=== PATIENT | female | born 1985 | race Two or more races ===

== ENCOUNTER 2017-05-11 07:34 | Emergency (ER) | payer SELFPAY ==
[2017-05-11 07:48] LABS: URINE HCG POC HCG POSITIVE (Negative)
[2017-05-11 08:13] LABS: BACTERIA,URINE FEW /HPF (0-FEW); BILIRUBIN,URINE NEGATIVE (NEG); CLARITY,URINE CLOUDY; COLOR,URINE YELLOW; GLUCOSE,URINE NEGATIVE (NEG); NITRITE,URINE NEGATIVE (NEG); PROTEIN,URINE NEGATIVE (NEG-TRACE); RBC,URINE 0 /HPF (0-2); SQUAMOUS EPITHELIAL CELL,UR FEW /LPF; UROBILINOGEN,URINE 0.2 mg/dL (0.2 mg/dL); WBC,URINE 0 /HPF (0-4)
[2017-05-11] MEDS: IV NORMAL SALINE 1000ML BAG 1,000 ML IV (08:21)
[2017-05-11 08:29] LABS: ADD MAN DIFF? NO
[2017-05-11 08:32] LABS: BASO % 1 % (0-3); EOS # 0.1 x10^3/uL (0.0-0.7); EOS % 1 % (0-3); HEMATOCRIT 37.9 % (36.0-47.0); HEMOGLOBIN 12.8 g/dL (12.0-15.5); LYMPH # 2.1 x10^3/uL (1.0-4.8); LYMPH % 27 % (24-48); MEAN CORPUSCULAR HEMOGLOBIN 29 pg (25-35); MEAN CORPUSCULAR HGB CONC 34 g/dL (31-37); MEAN CORPUSCULAR VOLUME 86 fL (79-100); MONO # 0.6 x10^3/uL (0.0-1.1); MONO % 7 % (0-9); NEUT % 64 % (31-73); PLATELET COUNT 238 x10^3/uL (140-400); RED BLOOD COUNT 4.42 x10^6/uL (3.50-5.40); RED CELL DISTRIBUTION WIDTH 12.4 % (11.5-14.5); WHITE BLOOD COUNT 7.9 x10^3/uL (4.0-11.0)
[2017-05-11 08:44] LABS: ANION GAP 7 (6-14); BLOOD UREA NITROGEN 10 mg/dL (7-20); BUN/CREATININE RATIO 17 (6-20); CALCIUM 8.8 mg/dL (8.5-10.1); CARBON DIOXIDE 26 mmol/L (21-32); CHLORIDE 104 mmol/L (98-107); CREATININE 0.6 mg/dL (0.6-1.0); GFR 117.4; GLUCOSE 101 mg/dL (70-99); SODIUM 137 mmol/L (136-145)
[2017-05-11 08:50] LABS: ALBUMIN 3.3 g/dL (3.4-5.0); ALBUMIN/GLOBULIN RATIO 0.8 (1.0-1.7); ALK PHOS 62 U/L (46-116); ALT (SGPT) 14 U/L (14-59); AST (SGOT) 11 U/L (15-37); MAGNESIUM 1.8 mg/dL (1.8-2.4); TOTAL BILIRUBIN 0.3 mg/dL (0.2-1.0); TOTAL PROTEIN 7.3 g/dL (6.4-8.2)
[2017-05-12 14:27] LABS: CHLAMYDIA PROBE Negative (Negative); GC PROBE Negative (Negative)
== END 2017-05-11 10:13 | disposition home or self-care (01) ==
LOC: ER 07:34
DX: O20.0 Threatened abortion (principal); O98.811 Other maternal infectious and parasitic diseases complicating pregnancy, first trimester; B37.3 Candidiasis of vulva and vagina; Z3A.08 8 weeks gestation of pregnancy
CPT/HCPCS: 36415; 76801; 80053; 81001; 81025; 83735; 84702; 85025; 86850; 86900; 86901; 87491; 87591; 96360; 99285-25; J7030; Q0111

== ENCOUNTER 2019-10-04 18:48 | Emergency (ER) | payer SELFPAY ==
[~2019-10-04] VITALS: Ht 165.1 cm; Wt 69.0 kg
--- NOTE | 2019-10-04 19:46 | PHYS DOC ---
Past Medical History Past Medical History: No Pertinent History Additional Past Medical Histor: COVID-19 POSITIVE 09/26/19 Past Surgical History: No Surgical History Smoking Status: Never Smoker Alcohol Use: None Drug Use: None General Adult EDM: Chief Complaint: SHORTNESS OF BREATH HPI: HPI: Patient is a 34 year old female presents with a one-day history of shortness of breath. Patient endorses pleuritic upper chest pain that is nonradiating. Pain is worse across. Pain is moderate in severity. Symptoms are worse with backrest. Patient has had a nonproductive cough for the last 9 days which is improving. Patient was tested positive for [place] virus 9 days ago. Patient denies any fever. Review of Systems: Review of Systems: Constitutional: Denies fever or chills. [] Eyes: Denies change in visual acuity. [] HENT: Complains of nasal congestion Respiratory: Planes of dry cough and shortness of breath Cardiovascular: Complains of pleuritic chest pain but no edema GI: Denies abdominal pain, but had some mild nausea and diarrhea yesterday : Denies dysuria. [] Musculoskeletal: Denies back pain or joint pain. [] Integument: Denies rash. [] Neurologic: Denies headache, focal weakness or sensory changes. [] Endocrine: Denies polyuria or polydipsia. [] Lymphatic: Denies swollen glands. [] Psychiatric: Denies depression or anxiety. [] Heart Score: Risk Factors: Risk Factors: DM, Current or recent (<one month) smoker, HTN, HLP, family history of CAD, obesity. Risk Scores: Score 0 - 3: 2.5% MACE over next 6 weeks - Discharge Home Score 4 - 6: 20.3% MACE over next 6 weeks - Admit for Clinical Observation Score 7 - 10: 72.7% MACE over next 6 weeks - Early Invasive Strategies Allergies: Allergies: Allergies Coded Allergies Type Severity Reaction Last Updated Verified No Known Drug Allergies 05/11/17 No Physical Exam: PE: Constitutional: Well developed, well nourished, no acute distress, non-toxic appearance. [] HENT: Normocephalic, atraumatic, bilateral external ears normal, no trismus nose normal. [] Eyes: PERRLA, EOMI, conjunctiva normal, no discharge. [] Neck: Normal range of motion, no tenderness, supple, no stridor. [] Cardiovascular:Heart rate regular rhythm, peripheral pulses intact, cap refill brisk Lungs & Thorax: Bilateral breath sounds clear, no respiratory distress Abdomen: , soft, no tenderness, no masses, no pulsatile masses. [] Skin: Warm, dry, no erythema, no rash. [] Back: No tenderness, no CVA tenderness. [] Extremities: No tenderness, no cyanosis, no clubbing, ROM intact, no edema. [] Neurologic: Alert and oriented X 3, normal motor function, normal sensory function, no focal deficits noted. [] Psychologic: Affect normal, judgement normal, mood normal. [] Current Patient Data: Vital Signs: Vital Signs Date Time Temp Pulse Resp B/P (MAP) Pulse Ox O2 Delivery O2 Flow Rate FiO2 10/04/19 19:32 98.7 72 18 123/83 (96) 100 Room Air 98.7 EKG: EKG: [] EKG interpreted by la sinus bradycardia at a rate of 58 normal axis normal intervals normal ST segments Radiology/Procedures: Radiology/Procedures: [][address] [id number] IMAGING REPORT Signed PATIENT: ROBERTO SCHMIDCOUNT: [id number] : 1985 LOCATION: ER AGE: 34 SEX: F EXAM STATUS: REG ER ORD. PHYSICIAN: KESHA KAUFFMAN MD REASON: soa, covid pos PROCEDURE: PORTABLE CHEST 1V PORTABLE CHEST 1V History: Shortness of air, COVID positive Comparison: None. Findings: Single view of the chest is submitted. No significant infiltrate is identified by radiograph. There is no pleural fluid or pneumothorax. Heart size is within normal limits given technique. Impression: 1. No infiltrate is identified by radiograph. Electronically signed by: Layo Hedrick MD (10/04/2019 8:21 PM) [facility] DICTATED and SIGNED BY: LAYO HEDRICK MD DATE: 10/04/192020 [address] [id number] IMAGING REPORT Signed PATIENT: ROBERTO SCHMIDCOUNT: [id number] : 1985 LOCATION: ER AGE: 34 SEX: F EXAM STATUS: REG ER ORD. PHYSICIAN: KESHA KAUFFMAN MD REASON: SOA, ELEVATED DIMER, COVID POSITIVE PROCEDURE: CT ANGIOGRAPHY CHEST Exam: CT of chest with contrast INDICATION: Short of air, elevated d-dimer. Covid positive TECHNIQUE: Sequential axial images through the chest obtained following the administration 100 mL of Omni 350 IV contrast. Sagittal and coronal reformatted images were reconstructed from the axial data and reviewed. Comparisons: Chest x-ray FINDINGS: Visualized portions of the thyroid are unremarkable. No enlarged mediastinal lymph nodes. Heart size is normal. No pericardial effusion. Thoracic aorta has a normal course and caliber. Pulmonary artery is not enlarged. No pulmonary embolus identified within the main, lobar or segmental pulmonary arteries. Airways are patent. There is patchy areas of groundglass opacity noted in the peripheral lower lobes bilaterally. No pneumothorax. No suspicious lung nodules are identified. No pleural effusion or thickening. Visualized upper abdomen is unremarkable. No suspicious osseous lesions or acute fractures. IMPRESSION: 1. No pulmonary embolus identified within the main, lobar or segmental pulmonary arteries. 2. Patchy areas of groundglass opacity particularly in the peripheral lower lobes consistent with history of Covid 19 Exposure: One or more of the following in the visualized dose reduction techniques were utilized for this examination: 1. Automated exposure control 2. Adjustment of the MA and/or KV according to patient size 3. Use of iterative of reconstructive technique Electronically signed by: Juan Carlos Persaud MD (10/04/2019 9:57 PM) [id number] DICTATED and SIGNED BY: JUAN CARLOS PERSAUD MD DATE: 10/04/192156 Course & Med Decision Making: Course & Med Decision Making Pertinent Labs and Imaging studies reviewed. (See chart for details) [] 34-year-old female recently diagnosed with COVID-19. Patient has chest pain pleuritic in nature and shortness of breath and elevated d-dimer therefore she had a CT angiogram which was negative for pulmonary embolism. Patient is hemody namically stable but has patchy infiltrates on CT no respiratory distress. Patient stable for discharge to outpatient follow-up. Dragon Disclaimer: Dragon Disclaimer: This electronic medical record was generated, in whole or in part, using a voice recognition dictation system. Departure Departure Impression: Primary Impression: COVID-19 Additional Impression: Dyspnea Disposition: 01 HOME, SELF-CARE Condition: STABLE Referrals: NO PCP (PCP) PCP 2-3 DAYS Patient Instructions: Shortness of Breath Additional Instructions: Definicin Se le realiz la prueba de deteccin del COVID-19 o se le diagnostic dicha enfermedad. Es luis infeccin ocasionada por un nuevo tipo de coronavirus. En la mayora de los casos, el COVID-19 provoca sntomas similares a los del resfriado. En algunas personas, puede ocasionar sntomas ms graves, zee problemas respiratorios. No existe un tratamiento para el virus COVID-19. El cuerpo elimina la infeccin con el tiempo. El cuidado personal ayuda a aliviar el malestar. Pasos que debe seguir 1. Cuidados personales Descanse cuando sea necesario. Los hbitos saludables pueden ayudarlo a sentirse mejor. Algunas medidas para lograr cambios incluyen lo siguiente: - Elija alimentos saludables, zee frutas y verduras. Linda abundante cantidad de agua shane todo el da. - Duerma sue por la noche. - Si fuma, intente no hacerlo. [place] ayudar a mejorar la respiracin. - Evite el alcohol. 2. Mantenga sanos a los dems El virus puede contagiarse a otras personas. Cada vez que estornuda o tose, se l iberan gotitas. Las gotitas pueden entrar en la boca, la nariz o los ojos de las personas que se encuentran cerca de usted y ocasionar la infeccin. Para reducir las probabilidades de contagiar el virus COVID-19 a otros, tenga en cuenta lo siguiente: - Qudese en casa el tiempo que el mdico se lo indique. Es posible que deba quedarse en casa hasta que la enfermedad desaparezca. Salga nicamente para recibir atencin mdica o en gume de urgencia. - Evite las reas pblicas, los eventos o el transporte pblico. No reanude las actividades laborales o escolares hasta que el mdico lo autorice. - Llame previamente si necesita asistir a un centro mdico. Avise que es posible que haya contrado COVID-19. [place] ayudar a que le indiquen adonde debe dirigirse. Rhonda pueden pedirle que use luis mscara facial cuando vaya al consultorio. Si llama a los servicios de asistencia mdica de urgencias, avseles que es posible que haya contrado COVID-19. Mientras est en casa: - Evite el contacto directo con otras personas. Mantngase a luis distancia aproximada de 2 metros. Si es posible, pasen la mayor parte del tiempo en ibarra separadas. - Use luis mscara facial si estar en contacto directo con otras personas, por ejemplo, si compartir luis habitacin o un vehculo. - Pida a alguien que limpie las superficies comunes de la casa. Limpie picaportes, mesadas y lavamanos con limpiadores domsticos todos los lopez. - Al toser o estornudar, cbrase con un pauelo de papel. Despus de usarlo, deschelo de inmediato. Si no tiene un pauelo de papel, tosa o estornude en el pliegue del codo. - Lvese las katy con frecuencia. Lvese las katy despus de estornudar o toser. Lvese con agua y jabn shane, al menos, 20 segundos. Si no dispone de agua y jabn, use un limpiador de katy a base de alcohol. - No cocine para otros. Evite compartir objetos personales, zee tenedores, cucharas o cepillos de dientes. - Mientras est enfermo, evite el contacto directo con las mascotas. No hay indicios de si el virus se transmite a las mascotas. Esta es luis medida de seguridad que debe tenerse en cuenta hasta que se sepa ms acerca de jaja virus. El aislamiento puede ser frustrante. La interaccin social puede ayudar. Mantngase en contacto con amigos y familiares por telfono u otros medios tecnolgicos. Puede interactuar con otras personas en el hogar, meryl mantenga luis distancia [place] de aproximadamente 2 metros. Seguimiento Las pruebas para confirmar la presencia del COVID-19 pueden demorar algunos lopez. Es posible que deba seguir los pasos mencionados anteriormente hasta que estn los resultados de las pruebas. Lo llamarn del consultorio mdico para saber si lu habido algn cambio en luna [place]. Tambin le avisarn cuando pueda volver a estar cerca de otras personas. Problemas a los que debe estar atento Comunquese con el mdico si no se recupera segn lo previsto o si tiene probl emas zee los siguientes: - Dificultad para respirar - Dolor de pecho - Empeoramiento de los sntomas Si flo que tiene luis urgencia, llame a los servicios de asistencia mdica de urgencias de inmediato. As taken from [facility] EMERGENCY DEPARTMENT GENERAL DISCHARGE INSTRUCTIONS Thank you for coming to [facility] Emergency Department (ED) today and trusting us with you care. We trust that you had a positivie experience in our Emergency Department. If you wish to speak to the department management, you may call the Director at [phone]. YOUR FOLLOW UP INSTRUCTIONS ARE FOLLOWS: 1. Do you have a private Doctor? If you do not have a private doctor, please ask for a resource list of physicians or clinics that may be able to assist you with follow up care. 2. The Emergency Physicain has interpreted your x-rays. The X-Ray specialist will also review them. If there is a change in the findings, you will be notified in 48 hours when at all possible. 3. A lab test or culture has been done, your results will be reviewed and you will be notified if you need a change in treatment. ADDITIONAL INSTRUCTIONS AND INFORMATION: 1. Your care today has been supervised by a physician who is specially trained in emergency care. Many problems require more than one evaluation for a complete diagnosis and treatment. We recommend that you schedule your follow up appointment as recommended to ensure complete treatment of you illness or injury. If you are unable to obtain follow up care and continue to have a problem, or if your consition worsens, we recommend that you return to the ED. 2. We are not able to safely determine your condition over the phone nor are we able to give sound medical advice over the phone. For these safety reasons, if you call for medical advice we will ask you to come to the ED for further evaluation. 3. If you have any questions regarding these discharge instructions please call the ED at [phone]. SAFETY INFORMATION: In the interest of safety, wellness, and injury prevention; we encourage you to wear your sealbelt, if you smoke; quite smoking, and we encourage family to use a protective helmet for bicycling and other sporting events that present an increased risk for head injury. IF YOUR SYMPTOMS WORSEN OR NEW SYMPTOMS DEVELOP, OR YOU HAVE CONCERNS ABOUT YOUR CONDITION; OR IF YOUR CONDITION WORSENS WHILE YOU ARE WAITING FOR YOUR FOLLOW UP APPOINTMENT; EITHER CONTACT YOUR PRIMARY CARE DOCTOR, THE PHYSICIAN WHOSE NAME AND NUMBER YOU WERE GIVEN, OR RETURN TO THE ED IMMEDIATELY. Justicifation of Admission Dx: Justifications for Admission: Justification of Admission Dx: N/A KESHA KAUFFMAN MD Oct 04, 2019 19:46
[2019-10-04 20:07] LABS: BASO % 0 % (0-3); EOS # 0.2 x10^3/uL (0.0-0.7); EOS % 3 % (0-3); HEMATOCRIT 39.2 % (36.0-47.0); HEMOGLOBIN 13.4 g/dL (12.0-15.5); LYMPH # 2.9 x10^3/uL (1.0-4.8); LYMPH % 41 % (24-48); MEAN CORPUSCULAR HEMOGLOBIN 29 pg (25-35); MEAN CORPUSCULAR HGB CONC 34 g/dL (31-37); MEAN CORPUSCULAR VOLUME 85 fL (79-100); MONO # 0.5 x10^3/uL (0.0-1.1); MONO % 7 % (0-9); NEUT # 3.5 x10^3/uL (1.8-7.7); NEUT % 49 % (31-73); PLATELET COUNT 215 x10^3/uL (140-400); RED BLOOD COUNT 4.63 x10^6/uL (3.50-5.40); RED CELL DISTRIBUTION WIDTH 12.9 % (11.5-14.5); WHITE BLOOD COUNT 7.2 x10^3/uL (4.0-11.0)
[2019-10-04 20:17] LABS: CALCIUM 8.7 mg/dL (8.5-10.1); GFR 64.3; POTASSIUM 4.2 mmol/L (3.5-5.1)
[2019-10-04 20:21] LABS: PREG TEST PT QUAL NEGATIVE (NEG)
[2019-10-04 20:23] LABS: ALBUMIN 3.3 g/dL (3.4-5.0); ALBUMIN/GLOBULIN RATIO 0.8 (1.0-1.7); TOTAL BILIRUBIN 0.3 mg/dL (0.2-1.0); TOTAL PROTEIN 7.5 g/dL (6.4-8.2)
--- NOTE | 2019-10-04 20:24 | RAD ---
PORTABLE CHEST 1V History: Shortness of air, COVID positive Comparison: None. Findings: Single view of the chest is submitted. No significant infiltrate is identified by radiograph. There is no pleural fluid or pneumothorax. Heart size is within normal limits given technique. Impression: 1. No infiltrate is identified by radiograph. Electronically signed by: Otis Hall MD (10/04/2019 8:21 PM) [facility]
[2019-10-04] MEDS ORDERED: CONTRAST GIVEN. MC PRN (21:30)
[2019-10-04] MEDS ORDERED: IOHEXOL 350 MG/ML 100 ML VIAL. IV ONE (22:00)
--- NOTE | 2019-10-04 22:00 | RAD ---
Exam: CT of chest with contrast INDICATION: Short of air, elevated d-dimer. Covid positive TECHNIQUE: Sequential axial images through the chest obtained following the administration 100 mL of Omni 350 IV contrast. Sagittal and coronal reformatted images were reconstructed from the axial data and reviewed. Comparisons: Chest x-ray FINDINGS: Visualized portions of the thyroid are unremarkable. No enlarged mediastinal lymph nodes. Heart size is normal. No pericardial effusion. Thoracic aorta has a normal course and caliber. Pulmonary artery is not enlarged. No pulmonary embolus identified within the main, lobar or segmental pulmonary arteries. Airways are patent. There is patchy areas of groundglass opacity noted in the peripheral lower lobes bilaterally. No pneumothorax. No suspicious lung nodules are identified. No pleural effusion or thickening. Visualized upper abdomen is unremarkable. No suspicious osseous lesions or acute fractures. IMPRESSION: 1. No pulmonary embolus identified within the main, lobar or segmental pulmonary arteries. 2. Patchy areas of groundglass opacity particularly in the peripheral lower lobes consistent with history of Covid 19 Exposure: One or more of the following in the visualized dose reduction techniques were utilized for this examination: 1. Automated exposure control 2. Adjustment of the MA and/or KV according to patient size 3. Use of iterative of reconstructive technique Electronically signed by: Juan Carlos Burgos MD (10/04/2019 9:57 PM) [id number]
[2019-10-04 22:35] VITALS: BP 106/68
--- NOTE | 2019-10-05 07:18 | EKG ---
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
== END 2019-10-04 22:48 | disposition home or self-care (01) ==
LOC: ER 18:48
DX: U07.1 COVID-19 (principal); R06.00 Dyspnea, unspecified; R06.02 Shortness of breath; R05 Cough
CPT/HCPCS: 36415; 71045; 71275; 80053; 84484; 84703; 85025; 85379; 93005; 99285; Q9967

== ENCOUNTER 2020-12-27 21:58 | Emergency (ER) | payer SELFPAY ==
[~2020-12-27] VITALS: Ht 165.1 cm; Wt 75.0 kg
[2020-12-27 22:18] LABS: BILIRUBIN,URINE NEGATIVE (NEG); CLARITY,URINE CLEAR; COLOR,URINE YELLOW; NITRITE,URINE NEGATIVE (NEG); PROTEIN,URINE NEGATIVE (NEG-TRACE); UROBILINOGEN,URINE 0.2 mg/dL (0.2 mg/dL)
[2020-12-27 22:32] LABS: BACTERIA,URINE MODERATE /HPF (0-FEW); RBC,URINE 0 /HPF (0-2); WBC,URINE OCC /HPF (0-4)
[2020-12-27 22:33] LABS: BASO % 0 % (0-3); EOS # 0.2 x10^3/uL (0.0-0.7); EOS % 3 % (0-3); HEMATOCRIT 33.6 % (36.0-47.0); HEMOGLOBIN 11.6 g/dL (12.0-15.5); LYMPH # 2.6 x10^3/uL (1.0-4.8); LYMPH % 32 % (24-48); MEAN CORPUSCULAR HEMOGLOBIN 30 pg (25-35); MEAN CORPUSCULAR HGB CONC 35 g/dL (31-37); MEAN CORPUSCULAR VOLUME 85 fL (79-100); MONO # 0.7 x10^3/uL (0.0-1.1); MONO % 9 % (0-9); NEUT # 4.6 x10^3/uL (1.8-7.7); NEUT % 57 % (31-73); PLATELET COUNT 250 x10^3/uL (140-400); RED BLOOD COUNT 3.95 x10^6/uL (3.50-5.40); RED CELL DISTRIBUTION WIDTH 12.4 % (11.5-14.5); WHITE BLOOD COUNT 8.2 x10^3/uL (4.0-11.0)
[2020-12-27 22:44] LABS: CALCIUM 8.4 mg/dL (8.5-10.1); CREATININE 0.9 mg/dL (0.6-1.0); GFR 72.1; POTASSIUM 3.6 mmol/L (3.5-5.1)
--- NOTE | 2020-12-27 23:33 | PHYS DOC ---
Past Medical History Past Medical History: No Pertinent History Additional Past Medical Histor: COVID-19 POSITIVE 09/26/19 Past Surgical History: No Surgical History Smoking Status: Never Smoker Alcohol Use: None Drug Use: None General Adult EDM: Chief Complaint: VAGINAL BLEEDING HPI: HPI: Patient is a 35-year-old female presents to the emergency department complaining of vaginal bleeding this today prior to arrival to the emergency department. Patient reports she went to urinate in the toilet and when she wiped she noticed bright red blood on the toilet paper. Patient denies bleeding otherwise. Patient denies abdominal pain or abdominal discomfort or abdominal cramping. Patient denies recent fever or chills, denies nausea, vomiting, diarrhea. Patient reports that she is 10 weeks , last menstrual cycle with normal duration of flow of 10/23/2020, reports a due date of 08/04/2021. Patient reports 7 para 3. SAB 2. Patient reports normal full-term pregnancies on first and second , third ended in an early first trimester miscarriage, fourth was a normal full-term , with fifth and sixth pregnancies ended in an early trimester miscarriage, had early uterine bleeding with current and was seen at [facility] ago, reports she was diagnosed with a normal intrauterine without any problems. Patient denies bleeding with during or after sex. Denies rectal bleeding, erin es seeing blood in her urine. Denies increased urinary frequency, denies urinary pressure, denies urinary burning. Denies STI concerns. Denies vaginal discharge, denies rashes or lesions to her vaginal area. Patient denies other physical complaints or physical concerns. Review of Systems: Review of Systems: 14 body systems of review of systems have been reviewed. See HPI for pertinent positives and negative responses, otherwise all other systems are negative, nonpertinent or noncontributory. Constitutional: Negative except as outlined in HPI above. Skin: Negative except as outlined in HPI above. Eyes: Negative except as outlined in HPI above. HENT: Negative except as outlined in HPI above. Respiratory: Negative except as outlined in HPI above. Cardiovascular: Negative except as outlined in HPI above. GI: Negative except as outlined in HPI above. : Negative except as outlined in HPI above. Musculoskeletal: Negative except as outlined in HPI above. Integument: Negative except as outlined in HPI above. Neurologic: Negative except as outlined in HPI above. Endocrine: Negative except as outlined in HPI above. Lymphatic: Negative except as outlined in HPI above. Psychiatric: Negative except as outlined in HPI above. Heart Score: C/O Chest Pain: No Risk Factors: Risk Factors: DM, Current or recent (<one month) smoker, HTN, HLP, family history of CAD, obesity. Risk Scores: Score 0 - 3: 2.5% MACE over next 6 weeks - Discharge Home Score 4 - 6: 20.3% MACE over next 6 weeks - Admit for Clinical Observation Score 7 - 10: 72.7% MACE over next 6 weeks - Early Invasive Strategies Allergies: Allergies: Allergies Coded Allergies Type Severity Reaction Last Updated Verified No Known Drug Allergies 05/11/17 No Physical Exam: PE: Constitutional: Well developed, well nourished, no acute distress, non-toxic appearance. 35-year-old female in no apparent distress. HENT: Normocephalic, atraumatic. Eyes: Conjunctiva normal, no discharge. Neck: Normal range of motion. Cardiovascular: Distal cap refill less than 2 seconds, no cyanosis appreciated. Lungs & Thorax: Patient is in no respiratory distress, no adventitious lung sounds appreciated. Abdomen: Bowel sounds normal, soft, no tenderness, no masses, no pulsatile masses. No bruising or skin discoloration of the abdomen. Skin: Warm, dry, no erythema, no rash. Back: No tenderness, no CVA tenderness. Extremities: No tenderness, no cyanosis, no clubbing, ROM intact, no edema. Neurologic: Alert and oriented X 3, normal motor function, normal sensory function, no focal deficits noted. Psychologic: Affect normal, judgement normal, mood normal. 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 Bimanual exam deferred as patient denies pelvic pain or discomfort. Current Patient Data: Labs: Laboratory Tests Test 12/27/20 22:06 12/27/20 22:08 12/27/20 22:26 Urine Collection Type Unknown Urine Color Yellow Urine Clarity Clear Urine pH 6.0 (<5.0-8.0) Urine Specific [place] 1.015 (1.000-1.030) Urine Protein Negative mg/dL (NEG-TRACE) Urine Glucose (UA) Negative mg/dL (NEG) Urine Ketones (Stick) Negative mg/dL (NEG) Urine Blood Small (NEG) Urine Nitrite Negative (NEG) Urine Bilirubin Negative (NEG) Urine Urobilinogen Dipstick 0.2 mg/dL (0.2 mg/dL) Urine Leukocyte Esterase Negative (NEG) Urine RBC 0 /HPF (0-2) Urine WBC Occ /HPF (0-4) Urine Squamous Epithelial Cells Mod /LPF Urine Bacteria Moderate /HPF (0-FEW) Urine Mucus Slight /LPF POC Urine HCG, Qualitative Hcg positive (Negative) White Blood Count 8.2 x10^3/uL (4.0-11.0) Red Blood Count 3.95 x10^6/uL (3.50-5.40) Hemoglobin 11.6 g/dL (12.0-15.5) L Hematocrit 33.6 % (36.0-47.0) L Mean Corpuscular Volume 85 fL (79-100) Mean Corpuscular Hemoglobin 30 pg (25-35) Mean Corpuscular Hemoglobin Concent 35 g/dL (31-37) Red Cell Distribution Width 12.4 % (11.5-14.5) Platelet Count 250 x10^3/uL (140-400) Neutrophils (%) (Auto) 57 % (31-73) Lymphocytes (%) (Auto) 32 % (24-48) Monocytes (%) (Auto) 9 % (0-9) Eosinophils (%) (Auto) 3 % (0-3) Basophils (%) (Auto) 0 % (0-3) Neutrophils # (Auto) 4.6 x10^3/uL (1.8-7.7) Lymphocytes # (Auto) 2.6 x10^3/uL (1.0-4.8) Monocytes # (Auto) 0.7 x10^3/uL (0.0-1.1) Eosinophils # (Auto) 0.2 x10^3/uL (0.0-0.7) Basophils # (Auto) 0.0 x10^3/uL (0.0-0.2) Laboratory Tests 12/27/20 22:26 Microbiology 12/27/20 Wet Prep - Final, Complete Vital Signs: Vital Signs Date Time Temp Pulse Resp B/P (MAP) Pulse Ox O2 Delivery O2 Flow Rate FiO2 12/27/20 22:00 98.2 77 16 128/80 (96) 100 Room Air 98.2 EKG: EKG: [] Radiology/Procedures: Radiology/Procedures: PROCEDURE: OB <14 WKS W/TV Study: US OB <14 WKS +TV DATE: 12/27/2020 11:04 PM INDICATION: 10 weeks . Vaginal bleeding. COMPARISON: None during this gestation. TECHNIQUE: Transabdominal and transvaginal ultrasonography of the pelvis was performed. Color Doppler and duplex were utilized as appropriate. FINDINGS: Normally marginated intrauterine gestational sac containing a pole with a crown-rump length of 3.16 cm corresponding to a gestational age of 10 weeks 0 days. heart rate of 171 bpm. Visible yolk sac. No subchorionic hemorrhage. Unremarkable uterine myometrium. Nonvisualized right ovary. Normal Doppler flow to the left ovary. No free pelvic fluid. The uterus measures 8.3 x 6.3 x 11.3 cm. The left ovary measures 2.1 x 2.1 x 1.7 cm. IMPRESSION: Single live intrauterine with an estimated gestational age by ultrasound of 10 weeks 0 days corresponding to a delivery date of 07/25/2021. No subchorionic hemorrhage or other complication seen by ultrasound. Electronically signed by: DAVID GHOTRA MD (12/27/2020 11:38 PM) [facility] Course & Med Decision Making: Course & Med Decision Making Pertinent Labs and Imaging studies reviewed. (See chart for details) 35-year-old female, vital signs reviewed, presents emergency department concerning vaginal bleeding during . Patient is 8 weeks 4 days per reported EDC of 08/04/2021. Physical examination concerning for bacterial vaginosis otherwise unremarkable, no blood was noted in the vaginal vault. No RBCs or WBCs in urine, her urine is positive, otherwise her urine is not infected. Will order type and cross related to patient's reporting vaginal bleeding, beta hCG quant, OB less than 14 weeks with transvaginal ultrasound. CBC, BMP. Pelvic exam, GC chlamydia with wet prep vaginal cultures. Patient's beta hCG 90,591. CBC and BMP unremarkable, blood type O+, patient is not a candidate for RhoGam, wet prep positive for clue cells consistent with bacterial vaginosis, GC and Chlamydia cultures pending. Ultrasound pending. Report of transvaginal ultrasound, single intrauterine with heart rate 171 bpm. Discussed all findings with patient, will start on Flagyl regimen for bacterial vaginosis, discussed pelvic rest, strict follow-up with MACHINE BENDER soon, patient reports she has a appointment in 2 weeks. Discussed strict return to emergency department precautions and concerns, patient gave verbal understanding of and is amenable to ED discharge planning. Discussed with the patient all findings and diagnostic testing as well as the need to follow-up with their primary care provider for further evaluation and treatment or return to the ED if any new or worsening symptoms. Strict return precautions were also discussed at length, the patient voiced understanding and agreement with the discharge planning. The patient was nontoxic in appearance, in no apparent distress, and hemodynamically stable at the time of disposition. Dragon Disclaimer: Anaergia Disclaimer: This electronic medical record was generated, in whole or in part, using a voice recognition dictation system. Departure Departure Impression: Primary Impression: Bacterial vaginosis Additional Impression: Threatened miscarriage in early Disposition: HOME / SELF CARE / HOMELESS Condition: GOOD Referrals: NO PCP (PCP) Patient Instructions: Bacterial Vaginosis, Threatened Miscarriage Additional Instructions: You were seen today in the emergency department for vaginal bleeding. An ultr asound revealed a normal intrauterine at approximately 10 weeks gestation. Your urinalysis assay and blood work did not show any concerning findings. Your vaginal examination is concerning for bacterial vaginosis, I am treating you with Flagyl that you will take twice a day for the next 7 days. As we discussed, no sex until reevaluated by your MACHINE BENDER. Your beta hCG level today was 90,591. Please have this reassessed and 3 days. Please return to the emergency department for worsening symptoms or other concerns. Please call your MACHINE BENDER this Tuesday to tell them you were here, tell them your hCG level, and tell them you need to have this redrawn in 3 days. Thank you for visiting our Emergency Department. It was a pleasure taking care of you today in the emergency department and we appreciate you trusting us with your care. If any additional problems come up don't hesitate to return to visit us. Please follow up with your primary care provider so they can plan additional care if needed and know about the problem that you had. If symptoms worsen come back to the Emergency Department. Any concerning symptoms that start such as chest pain, shortness of air, weakness or numbness on one side of the body, running high fevers or any other concerning symptoms return to the ER. You had reported that you do not have STI concerns. I have sent to your vaginal cultures for gonorrhea and chlamydia testing. You are not treated for gonorrhea or chlamydia today. If either comes back positive, you will be contacted at the number you left with our admitting clerks and started on a antibiotic for this infection. Hoy la atendieron en el departamento de emergencias por sangrado vaginal. Padmaja ecografa revel un embarazo intrauterino normal aproximadamente a las 10 semanas de gestacin. Adamson anlisis de orina y anlisis de pacheco no arrojaron hallazgos preocupantes. Adamson examen vaginal es preocupante por la vaginosis bacteriana, la estoy tratando con Flagyl que julisa dos veces al da shane los prximos 7 lopez. [place] ya comentamos, nada de sexo hasta que adamson obstetra / gi neclogo lo reevale. Adamson nivel de beta hCG hoy fue 90,591. Por favor, vuelva a evaluarlo y 3 lopez. Regrese al departamento de emergencias si los sntomas empeoran u otras inquietudes. Llame a adamson obstetra / gineclogo jaja lunes para decirle que estuvo aqu, dgale adamson nivel de hCG y dgale que debe volver a dibujarlo en 3 lopez. Reji por visitar nuestro Departamento de Emergencias. Fue un placer atenderlo hoy en el departamento de emergencias y le agradecemos que nos haya confiado adamson atencin. Si surge algn problema adicional, no dude en volver a visitarnos. Adalberto un seguimiento con adamson proveedor de atencin primaria para que puedan planificar atencin adicional si es necesario y conocer el problema que tuvo. Si los sntomas empeoran, regrese al Departamento de Emergencias. Cualquier sntoma preocupante que comience, zee dolor en el pecho, falta de aire, debilidad o entumecimiento en un lado del cuerpo, fiebre elvis o cualquier otro sntoma preocupante, regresa a la mame de emergencias. Cerda informado que no tiene problemas de ITS. He enviado a nahomi cultivos vaginales para pruebas de gonorrea y clamidia. Hoy no recibe tratamiento para la gonorrea o la clamidia. Si alguno de los dos resulta positivo, lo contactaremos al nmero que sher con nuestros empleados de admisin y comenzar con un antibitico para esta infeccin. EMERGENCY DEPARTMENT GENERAL DISCHARGE INSTRUCTIONS Thank you for coming to [facility] Emergency Department (ED) today and trusting us with you care. We trust that you had a positive experience in our Emergency Department. If you wish to speak to the department management, you may call the Director at [phone]. YOUR FOLLOW UP INSTRUCTIONS ARE FOLLOWS: 1. Do you have a private Doctor? If you do not have a private doctor, please ask for a resource list of physicians or clinics that may be able to assist you with follow up care. 2. The Emergency Physicain has interpreted your x-rays. The X-Ray specialist will also review them. If there is a change in the findings, you will be notified in 48 hours when at all possible. 3. A lab test or culture has been done, your results will be reviewed and you will be notified if you need a change in treatment. ADDITIONAL INSTRUCTIONS AND INFORMATION: 1. Your care today has been supervised by a physician who is specially trained in emergency care. Many problems require more than one evaluation for a complete diagnosis and treatment. We recommend that you schedule your follow up appointment as recommended to ensure complete treatment of you illness or injury. If you are unable to obtain follow up care and continue to have a problem, or if your condition worsens, we recommend that you return to the ED. 2. We are not able to safely determine your condition over the phone nor are we able to give sound medical advice over the phone. For these safety reasons, if you call for medical advice we will ask you to come to the ED for further evaluation. 3. If you have any questions regarding these discharge instructions please call the ED at [phone]. SAFETY INFORMATION: In the interest of safety, wellness, and injury prevention; we encourage you to wear your sealbelt, if you smoke; quite smoking, and we encourage family to use a prote ctive helmet for bicycling and other sporting events that present an increased risk for head injury. IF YOUR SYMPTOMS WORSEN OR NEW SYMPTOMS DEVELOP, OR YOU HAVE CONCERNS ABOUT YOUR CONDITION; OR IF YOUR CONDITION WORSENS WHILE YOU ARE WAITING FOR YOUR FOLLOW UP APPOINTMENT; EITHER CONTACT YOUR PRIMARY CARE DOCTOR, THE PHYSICIAN WHOSE NAME AND NUMBER YOU WERE GIVEN, OR RETURN TO THE ED IMMEDIATELY. Scripts Metronidazole (METRONIDAZOLE) 500 Mg Tablet 1 TAB PO BID for Bacterial Vaginosis for 7 Days, #14 TAB 0 Refills Prov: ACE GOMEZ APRN 12/27/20 ACE GOMEZ APRN Dec 27, 2020 23:33
--- NOTE | 2020-12-27 23:40 | RAD ---
Study: US OB <14 WKS +TV DATE: 12/27/2020 11:04 PM INDICATION: 10 weeks . Vaginal bleeding. COMPARISON: None during this gestation. TECHNIQUE: Transabdominal and transvaginal ultrasonography of the pelvis was performed. Color Doppler and duplex were utilized as appropriate. FINDINGS: Normally marginated intrauterine gestational sac containing a pole with a crown-rump length of 3.16 cm corresponding to a gestational age of 10 weeks 0 days. heart rate of 171 bpm. Visible y olk sac. No subchorionic hemorrhage. Unremarkable uterine myometrium. Nonvisualized right ovary. Normal Doppler flow to the left ovary. No free pelvic fluid. The uterus measures 8.3 x 6.3 x 11.3 cm. The left ovary measures 2.1 x 2.1 x 1.7 cm. IMPRESSION: Single live intrauterine with an estimated gestational age by ultrasound of 10 weeks 0 days corresponding to a delivery date of 07/25/2021. No subchorionic hemorrhage or other complication seen by ultrasound. Electronically signed by: DAVID GHOTRA MD (12/27/2020 11:38 PM) [facility]
[2020-12-27] MEDS ORDERED: METR-34 PO (23:59)
[2020-12-28] VITALS: BP 120/79
[2020-12-30 19:09] LABS: GC PROBE Negative (Negative)
== END 2020-12-28 00:14 | disposition home or self-care (01) ==
LOC: ER 21:58
DX: O20.0 Threatened abortion (principal); O23.591 Infection of other part of genital tract in pregnancy, first trimester; B96.89 Other specified bacterial agents as the cause of diseases classified elsewhere; Z3A.10 10 weeks gestation of pregnancy
CPT/HCPCS: 36415; 76801; 76817; 80048; 81001; 81025; 84702; 85025; 86900; 86901; 87086; 87147; 87491; 87591; 99284; Q0111